=== PATIENT | male | born 1990 | race Caucasian/White ===

== ENCOUNTER 2016-08-30 21:43 | Emergency (ER) | payer BC ==
[2016-08-30 22:03] VITALS: BP 135/94; PULSE 81; RESP 22; TEMP 98.8; O2SAT 99
== END 2016-08-30 22:04 | disposition home or self-care (01) ==
LOC: CED 21:43
DX: Z53.21 Procedure and treatment not carried out due to patient leaving prior to being seen by health care provider (principal)